=== PATIENT | female | born 1955 | race Caucasian/White ===

== ENCOUNTER → 2017-01-11 | Outpatient (CLI) | payer BC, OTHER | LOC: RAD 13:13 | DX: R05 Cough (principal); R06.02 Shortness of breath ==

== ENCOUNTER 2017-08-08 19:18 | Emergency (ER) | payer BC, OTHER ==
[~2017-08-08] VITALS: Ht 160 cm; Wt 74.8 kg
[2017-08-08] MEDS ORDERED: NORCO 5-325 TA1 EACH PO (20:05)
[2017-08-08] MEDS ORDERED: IBUPROFEN 600600 M1 PO (20:05)
== END 2017-08-08 21:07 | disposition home or self-care (01) ==
LOC: ER 19:18
DX: S52.502A Unspecified fracture of the lower end of left radius, initial encounter for closed fracture (principal); S52.612A Displaced fracture of left ulna styloid process, initial encounter for closed fracture; I10 Essential (primary) hypertension; E11.9 Type 2 diabetes mellitus without complications; W01.0XXA Fall on same level from slipping, tripping and stumbling without subsequent striking against object, initial encounter; Y93.89 Activity, other specified; Y92.89 Other specified places as the place of occurrence of the external cause; Y99.8 Other external cause status

== ENCOUNTER → 2021-07-21 | Outpatient (CLI) | payer OTHER ==
[~2021-07-21] MED LIST: IBUPROFEN 600600 M1 PO; NORCO 5-325 TA1 EACH PO
== END ==
LOC: RAD 08:31
PROVIDERS: ATTEND Internal Medicine
DX: R05.3 Chronic cough (principal)